=== PATIENT | male | born 1935 | race Two or more races ===

== ENCOUNTER 2018-11-26 12:59 | Inpatient (IN) | payer OTHER ==
[~2018-11-26] VITALS: Ht 170.2 cm; Wt 94.2 kg
--- NOTE | 2018-11-26 14:17 | NUR ---
PT UP TO BEDSIDE FOR UA WITHOUT ASSISTANCE. PT REMAINS ON CONT CARDIAC AND PULSE OX MONITORING. FMAILY AT BEDSIDE.
[2018-11-26 14:24] LABS: BASOPHILS # (AUTO) 0.02 x10^3/uL (0-0.1); BASOPHILS % (AUTO) 0 % (0-1); EOSINOPHILS # (AUTO) 0.01 x10^3/uL (0-0.4); EOSINOPHILS % (AUTO) 0 % (1-7); LYMPHOCYTES # (AUTO) 0.98 x10^3/uL (1-3.4); LYMPHOCYTES % (AUTO) 8 % (22-44); MD NO; MEAN CORPUSCULAR VOLUME 91.1 fL (81-97); MEAN PLATELET VOLUME 7.1 fL (7.4-10.4); MONOCYTES # (AUTO) 0.82 x10^3/uL (0.2-0.8); MONOCYTES % (AUTO) 7 % (2-9); NEUTROPHILS # (AUTO) 10.41 x10^3/uL (1.8-6.8); NEUTROPHILS % (AUTO) 85 % (42-75); PLATELET COUNT 246 x10^3/uL (130-400); RED BLOOD COUNT 4.09 x10^6/uL (4.38-5.82)
[2018-11-26] MEDS ORDERED: MAALOX/HYOSCYAMINE/LIDOCAINE 45 ML BTL PO ONE (14:30)
[2018-11-26 14:34] LABS: INTERNATIONAL NORMALIZED RATIO 1.02 (0.93-1.1); PROTHROMBIN TIME 10.8 Seconds (9.6-11.5)
[2018-11-26 14:38] LABS: ALBUMIN 2.7 g/dL (3.4-5.0); ANION GAP 6 mmol/L (5-15); CALCIUM 8.1 mg/dL (8.5-10.1); CHLORIDE 100 mmol/L (98-107)
[2018-11-26 14:43] LABS: ALANINE AMINOTRANSFERASE 51 U/L (12-78); ALKALINE PHOSPHATASE 88 U/L (45-117); BILIRUBIN,TOTAL 0.9 mg/dL (0.2-1.0); CREATININE 1.07 mg/dL (0.7-1.3); TOTAL PROTEIN 7.4 g/dL (6.4-8.2); TROPONIN I < 0.015 ng/mL (0.000-0.045)
[2018-11-26] MEDS ORDERED: MAALOX/HYOSCYAMINE/LIDOCAINE 45 ML BTL ONE (15:01)
[2018-11-26] MEDS ORDERED: SODIUM CHLORIDE 0.9% 1,000 ML IV SCH ×2 (15:30→18:00)
[2018-11-26] MEDS ORDERED: METF500T17 PO (16:17)
[2018-11-26] MEDS ORDERED: ATOR-2 PO (16:17)
[2018-11-26] MEDS ORDERED: TAMS0.4C2 PO (16:20)
[2018-11-26] MEDS ORDERED: [UNRECOGNIZED DRUG - OTHER] (16:20)
[2018-11-26] MEDS ORDERED: glibenclamida PO (16:21)
[2018-11-26 16:50] LABS: THYROID STIMULATING HORMONE 0.208 mIU/L (0.358-3.740)
[2018-11-26] MEDS ORDERED: INSULIN REGULAR 100 UNITS/ML, 3ML VIAL SQ-INSULIN SCH (17:00)
[2018-11-26] MEDS ORDERED: GLUCAGON 1 MG IM PRN (17:00)
[2018-11-26] MEDS ORDERED: DOCUSATE 100 MG CAPSULE PO PRN (17:00)
[2018-11-26] MEDS ORDERED: ONDANSETRON 2MG/ML, 2ML IVPush PRN (17:00)
[2018-11-26] MEDS ORDERED: DEXTROSE 4 GM TAB.CHEW PO PRN (17:00)
[2018-11-26] MEDS ORDERED: ACETAMINOPHEN 325 MG TABLET PO PRN (17:00)
[2018-11-26] MEDS ORDERED: DEXTROSE 50%, 50ML SYRINGE IVPush PRN (17:00)
[2018-11-26] MEDS ORDERED: NITROGLYCERIN 0.4 MG/SPRAY SL PRN (17:00)
[2018-11-26] MEDS ORDERED: DILTIAZEM 5 MG/ML, 5ML IVPush PRN (17:00)
[2018-11-26] MEDS ORDERED: MORPHINE SULFATE 4 MG/ML, 1ML IVPush PRN (17:00)
[2018-11-26] MEDS ORDERED: NITROGLYCERIN 0.4 MG BOTTLE (25 TABS) SL PRN (17:00)
[2018-11-26 17:15] LABS: LDL/HDL RATIO 1.4 (0.5-3.0)
[2018-11-26 17:27] LABS: HEMOGLOBIN A1C 8.5 % (4.2-6.3)
[2018-11-26] MEDS ORDERED: MAGNESIUM SULFATE PMX 4GM/100M 100 ML IV ONE (18:00)
[2018-11-26 18:13] VITALS: BP 132/70
[2018-11-26] MEDS: INSULIN LISPRO 100 UNITS/ML, PEN SQ-INSULIN SCH ×2 (19:48→22:01)
[2018-11-26] MEDS: ENOXAPARIN 40 MG/0.4 ML SQ SCH (20:20)
[2018-11-26] MEDS ORDERED: OMNIPAQUE 350 MG/ML, 100ML BOTTLE ONE (21:36)
[2018-11-26] MEDS: SODIUM CHLORIDE FLUSH 10ML SYR IVF SCH (22:00)
[2018-11-26] MEDS: D5%-0.9% NACL 1,000 ML IV SCH (23:59)
[2018-11-27 00:59] VITALS: BP 116/65
[2018-11-27 04:25] LABS: ALBUMIN 2.4 g/dL (3.4-5.0); ANION GAP 7 mmol/L (5-15); CHLORIDE 102 mmol/L (98-107)
[2018-11-27 04:28] LABS: ALANINE AMINOTRANSFERASE 45 U/L (12-78); CREATININE 0.95 mg/dL (0.7-1.3); TROPONIN I 0.047 ng/mL (0.000-0.045)
[2018-11-27 04:36] VITALS: BP 130/91
[2018-11-27 04:37] LABS: ALKALINE PHOSPHATASE 82 U/L (45-117); FREE T4 (FREE THYROXINE) 1.35 ng/dL (0.76-1.46)
[2018-11-27 07:10] LABS: BASOPHILS # (AUTO) 0.02 x10^3/uL (0-0.1); BASOPHILS % (AUTO) 0 % (0-1); EOSINOPHILS # (AUTO) 0.08 x10^3/uL (0-0.4); EOSINOPHILS % (AUTO) 1 % (1-7); LYMPHOCYTES % (AUTO) 11 % (22-44); MD NO; MEAN CORPUSCULAR HEMOGLOBIN 31.2 pg (27.5-34.5); MEAN CORPUSCULAR HGB CONC 34.2 g/dL (33.2-36.2); MEAN CORPUSCULAR VOLUME 91.3 fL (81-97); MEAN PLATELET VOLUME 7.2 fL (7.4-10.4); MONOCYTES % (AUTO) 8 % (2-9); NEUTROPHILS # (AUTO) 7.49 x10^3/uL (1.8-6.8); NEUTROPHILS % (AUTO) 81 % (42-75); PLATELET COUNT 246 x10^3/uL (130-400); RED BLOOD COUNT 3.74 x10^6/uL (4.38-5.82); RED CELL DISTRIBUTION WIDTH 14.6 % (9.4-14.8)
[2018-11-27] MEDS: PANTOPRAZOLE 40 MG IV IVPush SCH (08:12)
[2018-11-27] MEDS: D5%-0.9% NACL 1,000 ML IV SCH (08:12)
[2018-11-27] MEDS: SODIUM CHLORIDE FLUSH 10ML SYR IVF SCH ×2 (08:12→19:39)
[2018-11-27 08:24] VITALS: BP 132/80
[2018-11-27] MEDS: INSULIN LISPRO 100 UNITS/ML, PEN SQ-INSULIN SCH ×4 (09:29→19:38)
[2018-11-27] MEDS: ASPIRIN 325 MG TABLET PO SCH (09:29)
[2018-11-27 10:16] LABS: TROPONIN I 0.026 ng/mL (0.000-0.045)
[2018-11-27] MEDS ORDERED: NITROGLYCERIN SINGLE TAB 0.4 MG SL PRN (11:00)
[2018-11-27] MEDS ORDERED: morphine SULFATE 10 MG/ML, 1ML IV PRN (11:00)
[2018-11-27] MEDS ORDERED: REGADENOSON 0.4 MG/5 ML SYRINGE ONE (12:40)
[2018-11-27 14:22] VITALS: BP 129/78
[2018-11-27] MEDS ORDERED: GLYB5TAB3 PO (14:53)
[2018-11-27] MEDS ORDERED: OMEP20CA14 PO (14:55)
[2018-11-27 16:34] LABS: RAPID INFLUENZA A Negative (Negative); RAPID INFLUENZA B Negative (Negative)
[2018-11-27] MEDS: ENOXAPARIN 40 MG/0.4 ML SQ SCH (19:38)
[2018-11-27] MEDS: ATORVASTATIN 80 MG TABLET PO SCH (19:39)
[2018-11-27 20:23] VITALS: BP 137/69
[2018-11-28 02:48] VITALS: BP 122/66
[2018-11-28] MEDS ORDERED: MAGNESIUM SULFATE PMX 4GM/100M 100 ML IV ONE (04:00)
[2018-11-28 05:29] LABS: BASOPHILS # (AUTO) 0.02 x10^3/uL (0-0.1); BASOPHILS % (AUTO) 0 % (0-1); EOSINOPHILS # (AUTO) 0.02 x10^3/uL (0-0.4); EOSINOPHILS % (AUTO) 0 % (1-7); LYMPHOCYTES # (AUTO) 1.04 x10^3/uL (1-3.4); LYMPHOCYTES % (AUTO) 12 % (22-44); MD NO; MEAN CORPUSCULAR HEMOGLOBIN 30.6 pg (27.5-34.5); MEAN CORPUSCULAR HGB CONC 33.5 g/dL (33.2-36.2); MEAN CORPUSCULAR VOLUME 91.2 fL (81-97); MEAN PLATELET VOLUME 6.9 fL (7.4-10.4); MONOCYTES # (AUTO) 0.74 x10^3/uL (0.2-0.8); MONOCYTES % (AUTO) 8 % (2-9); NEUTROPHILS # (AUTO) 7.02 x10^3/uL (1.8-6.8); NEUTROPHILS % (AUTO) 80 % (42-75); PLATELET COUNT 280 x10^3/uL (130-400); RED BLOOD COUNT 3.77 x10^6/uL (4.38-5.82); RED CELL DISTRIBUTION WIDTH 14.6 % (9.4-14.8)
[2018-11-28 05:44] LABS: TROPONIN I 0.022 ng/mL (0.000-0.045)
[2018-11-28 05:49] LABS: CHLORIDE 105 mmol/L (98-107)
[2018-11-28] MEDS: ASPIRIN 325 MG TABLET PO SCH (05:58)
[2018-11-28 06:21] LABS: ANION GAP 10 mmol/L (5-15); CALCIUM 8.1 mg/dL (8.5-10.1)
[2018-11-28 06:24] LABS: CREATININE 1.05 mg/dL (0.7-1.3)
[2018-11-28] MEDS: INSULIN LISPRO 100 UNITS/ML, PEN SQ-INSULIN SCH ×4 (08:42→22:20)
[2018-11-28] MEDS: PANTOPRAZOLE 40 MG IV IVPush SCH (08:42)
[2018-11-28] MEDS: TAMSULOSIN 0.4 MG CAP.ER.24H PO SCH (08:43)
[2018-11-28] MEDS: SODIUM CHLORIDE FLUSH 10ML SYR IVF SCH ×2 (08:43→21:00)
[2018-11-28 08:47] VITALS: BP 118/64
[2018-11-28 14:00] VITALS: BP 130/72
[2018-11-28 17:33] LABS: CLOSTRIDIUM DIFFICILE ANTIGEN NEGATIVE; CLOSTRIDIUM DIFFICILE TOXIN NEGATIVE (Negative)
[2018-11-28 19:32] VITALS: BP 122/60
[2018-11-28] MEDS: ENOXAPARIN 40 MG/0.4 ML SQ SCH (21:35)
[2018-11-28] MEDS: ATORVASTATIN 80 MG TABLET PO SCH (21:35)
[2018-11-29 01:40] VITALS: BP 136/70
[2018-11-29 04:52] LABS: BASOPHILS # (AUTO) 0.02 x10^3/uL (0-0.1); BASOPHILS % (AUTO) 0 % (0-1); EOSINOPHILS # (AUTO) 0.02 x10^3/uL (0-0.4); EOSINOPHILS % (AUTO) 0 % (1-7); LYMPHOCYTES # (AUTO) 1.32 x10^3/uL (1-3.4); LYMPHOCYTES % (AUTO) 14 % (22-44); MD NO; MEAN CORPUSCULAR HEMOGLOBIN 30.5 pg (27.5-34.5); MEAN CORPUSCULAR HGB CONC 33.4 g/dL (33.2-36.2); MEAN CORPUSCULAR VOLUME 91.3 fL (81-97); MEAN PLATELET VOLUME 6.7 fL (7.4-10.4); MONOCYTES # (AUTO) 0.73 x10^3/uL (0.2-0.8); MONOCYTES % (AUTO) 8 % (2-9); NEUTROPHILS # (AUTO) 7.05 x10^3/uL (1.8-6.8); NEUTROPHILS % (AUTO) 77 % (42-75); PLATELET COUNT 350 x10^3/uL (130-400); RED BLOOD COUNT 3.87 x10^6/uL (4.38-5.82); RED CELL DISTRIBUTION WIDTH 14.2 % (9.4-14.8)
[2018-11-29 04:59] LABS: ANION GAP 8 mmol/L (5-15); CALCIUM 8.1 mg/dL (8.5-10.1); CHLORIDE 104 mmol/L (98-107)
[2018-11-29 05:01] LABS: CREATININE 0.96 mg/dL (0.7-1.3)
[2018-11-29] MEDS: ASPIRIN 325 MG TABLET PO SCH (06:27)
[2018-11-29 08:30] VITALS: BP 140/69
[2018-11-29] MEDS: INSULIN LISPRO 100 UNITS/ML, PEN SQ-INSULIN SCH ×4 (09:07→20:49)
[2018-11-29] MEDS: SODIUM CHLORIDE FLUSH 10ML SYR IVF SCH ×2 (09:07→20:48)
[2018-11-29] MEDS: PANTOPRAZOLE 40 MG IV IVPush SCH (09:07)
[2018-11-29] MEDS: TAMSULOSIN 0.4 MG CAP.ER.24H PO SCH (09:08)
[2018-11-29 14:00] VITALS: BP 106/58
[2018-11-29 19:45] VITALS: BP 102/51
[2018-11-29] MEDS: ATORVASTATIN 80 MG TABLET PO SCH (20:48)
[2018-11-29] MEDS: ENOXAPARIN 40 MG/0.4 ML SQ SCH (20:48)
[2018-11-30 01:18] VITALS: BP 135/74
[2018-11-30 06:11] LABS: BASOPHILS # (AUTO) 0.01 x10^3/uL (0-0.1); BASOPHILS % (AUTO) 0 % (0-1); EOSINOPHILS % (AUTO) 2 % (1-7); LYMPHOCYTES # (AUTO) 1.72 x10^3/uL (1-3.4); LYMPHOCYTES % (AUTO) 20 % (22-44); MD NO; MEAN CORPUSCULAR HEMOGLOBIN 30.9 pg (27.5-34.5); MEAN CORPUSCULAR HGB CONC 33.9 g/dL (33.2-36.2); MEAN CORPUSCULAR VOLUME 91.4 fL (81-97); MEAN PLATELET VOLUME 6.6 fL (7.4-10.4); MONOCYTES # (AUTO) 0.73 x10^3/uL (0.2-0.8); MONOCYTES % (AUTO) 8 % (2-9); NEUTROPHILS # (AUTO) 6.08 x10^3/uL (1.8-6.8); NEUTROPHILS % (AUTO) 70 % (42-75); PLATELET COUNT 365 x10^3/uL (130-400); RED BLOOD COUNT 3.97 x10^6/uL (4.38-5.82); RED CELL DISTRIBUTION WIDTH 14.7 % (9.4-14.8)
[2018-11-30 06:25] LABS: ANION GAP 9 mmol/L (5-15); CALCIUM 8.3 mg/dL (8.5-10.1); CHLORIDE 105 mmol/L (98-107); CREATININE 0.96 mg/dL (0.7-1.3)
[2018-11-30 07:30] VITALS: BP 128/64
[2018-11-30] MEDS: ASPIRIN 325 MG TABLET PO SCH (10:00)
[2018-11-30] MEDS: TAMSULOSIN 0.4 MG CAP.ER.24H PO SCH (10:00)
[2018-11-30] MEDS: PANTOPRAZOLE 40 MG IV IVPush SCH (10:01)
[2018-11-30] MEDS: SODIUM CHLORIDE FLUSH 10ML SYR IVF SCH (10:01)
[2018-11-30] MEDS: INSULIN LISPRO 100 UNITS/ML, PEN SQ-INSULIN SCH ×2 (10:01→12:31)
[2018-11-30 13:25] VITALS: BP 104/64
[2018-11-30] MEDS ORDERED: ASPI325T17 PO (15:43)
== END 2018-11-30 17:10 | disposition home or self-care (01) | DRG 444 ==
LOC: ED 15:40 → 4WST 15:41 → ED 16:03 → DCLOUNGE 11-30 16:48
PROVIDERS: ADMIT Internal Medicine; ATTEND Internal Medicine
DX: K80.20 Calculus of gallbladder without cholecystitis without obstruction (principal); K85.10 Biliary acute pancreatitis without necrosis or infection; E44.0 Moderate protein-calorie malnutrition; E87.1 Hypo-osmolality and hyponatremia; D64.9 Anemia, unspecified; Z68.32 Body mass index [BMI] 32.0-32.9, adult; E11.9 Type 2 diabetes mellitus without complications; E78.00 Pure hypercholesterolemia, unspecified; E78.5 Hyperlipidemia, unspecified; E86.0 Dehydration; I20.8 Other forms of angina pectoris; I44.1 Atrioventricular block, second degree; I48.91 Unspecified atrial fibrillation; N40.0 Benign prostatic hyperplasia without lower urinary tract symptoms; R13.10 Dysphagia, unspecified; E07.81 Sick-euthyroid syndrome; Z87.891 Personal history of nicotine dependence; Z79.84 Long term (current) use of oral hypoglycemic drugs
CPT/HCPCS: 36415; 74220; 84145; 87400; 99285; J7042; 71045; 74177; 76700; 78452; 80048; 80053; 80061; 82962; 83036; 83690; 83735; 84100; 84439; 84443; 84481; 84484; 85025; 85610; 85730; 87324; 90656; 93005; 93017; C8929; G0378; J1650; J2785; Q9957; Q9967; A9502; C9113; C9898; J1815; J3475; J7030